=== PATIENT | female | born 1980 | race American Indian/Alaskan Native ===

== ENCOUNTER 2020-12-18 14:44 | Emergency (ER) | payer MEDICAID, MEDICARE ==
[2020-12-18 15:09] VITALS: BP 114/72
--- NOTE | 2020-12-18 15:13 | Emergency Department Report ---
Eye Injury/Foreign Body - HPI Duration: 2 Days Eye Location: Left Severity: None Eye Symptoms: Eye Redness: Yes, Used Eye Protection: No, Contact Lens Use: No, Photophobia: No Other History: Left left discharge and irritation and redness. Atraumatic. Mild pruritus. ED Review of Systems ROS: Stated complaint: LT EYE IRRITATION Other details as noted in HPI Comment: All other systems reviewed and negative ED Past Medical Hx - Social History Smoking Status: Never Smoker Substance Use Type: None - Medications Home Medications: Home Medications Medication Instructions Recorded Confirmed Last Taken Type Tobramycin [Tobrex] 1 drops OS Q4HR #1 bottle 12/18/20 Unknown Rx Eye Injury Exam - Exam General: Vital signs noted. No distress. Alert and acting appropriately. ED Course Vital Signs 12/18/20 15:06 Temperature 98.3 F Pulse Rate 88 Respiratory 20 Rate Blood Pressure 114/72 O2 Sat by Pulse 100 Oximetry ED Medical Decision Making - Medical Decision Making 40-year-old -[place] female presents emerged department with atraumatic left redness irritation with discharge. No evidence of any foreign body or any emergent eye conditions. The differential includes viral conjunctivitis, bacterial conjunctivitis, viral conjunctivitis. No evidence of any stye or any chalazion. Patient treated with eyedrops advised on need for follow-up with primary care Critical care attestation.: If time is entered above; I have spent that time in minutes in the direct care of this critically ill patient, excluding procedure time. ED Disposition Clinical Impression: Conjunctivitis Disposition: DC-01 TO HOME OR SELFCARE Is pt being admited?: No Does the pt Need Aspirin: No Condition: Stable Instructions: How to Use Eye Drops and Eye Ointments Prescriptions: Tobramycin [Tobrex] 1 drops OS Q4HR #1 bottle Referrals: GUILLE JURADO MD [Staff Physician] - 3-5 Days ED Eye Prob EXAM - General General appearance: alert Limitations: No Limitations Head exam: Positive: atraumatic Eyelids: Normal Inspection: Right Pupils: Regular, Round: Bilateral Sclera: Injection: Left (With redness and scant yellow discharge. No foreign bodies appreciated.), Exudate: Left ENT exam: Positive: normal exam, other (Nasal congestion bilaterally with clear nasal drainage.) Neck exam: Positive: normal inspection Respiratory exam: Positive: normal lung sounds bilaterally Cardiovascular Exam: Positive: regular rate Neurological exam: Positive: alert, oriented X3, CN II-XII intact Psychiatric exam: Positive: normal affect Skin exam: Positive: warm, dry
== END 2020-12-18 16:38 | disposition home or self-care (01) ==
LOC: ED 14:44
DX: H10.9 Unspecified conjunctivitis (principal); Z79.899 Other long term (current) drug therapy
CPT/HCPCS: 99282